=== PATIENT | female | born 1975 | race Two or more races ===

== ENCOUNTER 2019-06-15 23:21 | Emergency (ER) | payer SELFPAY ==
[~2019-06-15] VITALS: Ht 154.9 cm; Wt 65.3 kg
[2019-06-15 23:30] VITALS: BP 129/82
--- NOTE | 2019-06-15 23:30 | NUR ---
ED Nurse Note: Pt ambulated to ED from home c/o R lower abdominal pain 10/10v and N/V. VSS pt A&OX4
--- NOTE | 2019-06-15 23:38 | Emergency Room Report ---
History of Present Illness General Chief Complaint: Abdominal Pain Source: Patient Present Illness HPI Is a 43-year-old female with no past medical history. She presents with complaint of abdominal pain. Onset for last 3 days now. She said is constant but worse with eating. Radiating to her right inferior scapular area. Pain is localized to the right upper quadrant. Pain is sharp. 9 out of 10. Worse with eating. Worse with palpation. Nothing made it better. No fever or chills. Vomiting is nonbloody nonbilious. No diarrhea. Never had this problem before. No family history that she knows of. Allergies: Coded Allergies: No Known Allergies (Unverified , 06/15/19) Patient History Past Medical History: see triage record, old chart reviewed Past Surgical History: other Pertinent Family History: none Social History: Denies: smoking Last Menstrual Period: apr 2019 Now: No Immunizations: other Reviewed Nursing Documentation: PMH: Agreed; PSxH: Agreed Nursing Documentation-PMH Past Medical History: No Stated History Review of Systems Eye: Denies: eye pain, blurred vision ENT: Denies: ear pain, nose congestion, throat swelling Respiratory: Denies: cough, shortness of breath Cardiovascular: Denies: chest pain, palpitations Gastrointestinal: Reports: abdominal pain, nausea, vomiting; Denies: diarrhea Musculoskeletal: Denies: back pain, joint pain Skin: Denies: rash Neurological: Denies: headache, numbness Endocrine: Denies: increased thirst, increased urine Hematologic/Lymphatic: Denies: easy bruising All Other Systems: negative except mentioned in HPI Physical Exam Vital Signs Date Time Temp Pulse Resp B/P (MAP) Pulse Ox O2 Delivery O2 Flow Rate FiO2 06/15/19 23:24 98.4 67 20 129/82 (98) 97 Room Air Vitals normal Sp02 EP Interpretation: reviewed, normal General Appearance: well appearing, no apparent distress, alert, obese Head: normocephalic, atraumatic Eyes: bilateral eye PERRL, bilateral eye EOMI ENT: hearing grossly normal, normal pharynx Neck: full range of motion, supple, no meningismus Respiratory: chest non-tender, lungs clear, normal breath sounds Cardiovascular #1: regular rate, rhythm, no murmur Gastrointestinal: normal bowel sounds, no mass, no organomegaly, no bruit, non- distended, tenderness - Right upper quadrant Musculoskeletal: back normal, normal range of motion, gait/station normal Psychiatric: mood/affect normal Medical Decision Making Diagnostic Impression: Primary Impression: Cholelithiasis Qualified Codes: K80.20 - Calculus of gallbladder without cholecystitis without obstruction Additional Impression: Biliary colic symptom ER Course Patient presents with right upper quadrant pain. She has gallstones. No evidence of obstruction or cholecystitis. Pain well controlled now. No evidence of pancreatitis. Will discharge home. CT/MRI/US Diagnostic Results CT/MRI/US Diagnostic Results : Imaging Test Ordered: CT abdomen pelvis Impression Read by radiologist. Diffuse fatty liver. Suggestion of gallstones. Normal appendix. Last Vital Signs Date Time Temp Pulse Resp B/P (MAP) Pulse Ox O2 Delivery O2 Flow Rate FiO2 06/15/19 23:24 98.4 67 20 129/82 (98) 97 Room Air Status: improved Disposition: HOME, SELF-CARE Condition: Stable Scripts Ibuprofen* (MOTRIN*) 600 Mg Tablet 600 MG ORAL THREE TIMES A DAY, #30 TAB 0 Refills Prov: Deric Webb MD 06/16/19 Hydrocodone/Acetaminophen 5-325* (HYDROCODONE/ACETAMINOPHEN 5-325*) 1 Each Tablet 1 TAB ORAL Q6H PRN for For Pain, #20 TAB 0 Refills Prov: Deric Webb MD 06/16/19 Additional Instructions: Follow-up with your doctor in a week. You may need a referral to see a surgeon. Return if worse. Deric Webb MD Jun 15, 2019 23:38
[2019-06-15] MEDS ORDERED: Ketorolac 30mg Inj IV ONE (23:45)
[2019-06-15] MEDS ORDERED: Morphine Sulfate 4mg/ml Inj (IV USE ONLY) IVP ONE (23:45)
[2019-06-15 23:55] LABS: APPEARANCE,URINE CLEAR; BILIRUBIN, URINE NEGATIVE (NEGATIVE); COLOR,URINE PALE YELLOW; GLUCOSE, URINE (UA) NEGATIVE (NEGATIVE); KETONES,URINE NEGATIVE (NEGATIVE); LEUKOCYTE ESTERASE ,URINE NEGATIVE (NEGATIVE); NITRITE,URINE NEGATIVE (NEGATIVE); PH,URINE 6.5 (4.5-8.0); PROTEIN,URINE NEGATIVE (NEGATIVE); UROBILINOGEN,URINE NORMAL MG/DL (0.0-1.0)
[2019-06-16 00:05] LABS: ANION GAP 8 mmol/L (5-15); BLOOD UREA NITROGEN 14 mg/dL (7-18); CALCIUM 8.6 MG/DL (8.5-10.1); CARBON DIOXIDE 24 MMOL/L (21-32); CHLORIDE 102 MMOL/L (98-107); CREATININE 0.7 MG/DL (0.55-1.30); POTASSIUM 3.7 MMOL/L (3.5-5.1); SODIUM 134 MMOL/L (136-145)
[2019-06-16 00:07] LABS: BASOPHILS % (AUTO) 0.8 % (0.0-2.0); EOSINOPHILS % (AUTO) 0.8 % (0.0-3.0); HEMATOCRIT 38.7 % (37.0-47.0); HEMOGLOBIN 14.3 G/DL (12.0-16.0); LYMPHOCYTES % (AUTO) 17.8 % (20.0-45.0); MEAN CORPUSCULAR VOLUME 89 FL (80-99); MONOCYTES % (AUTO) 4.2 % (1.0-10.0); NEUTROPHILS % (AUTO) 76.5 % (45.0-75.0); PLATELET COUNT 297 K/UL (150-450); RED BLOOD COUNT 4.35 M/UL (4.20-5.40); RED CELL DISTRIBUTION WIDTH 9.9 % (11.6-14.8); WHITE BLOOD COUNT 12.7 K/UL (4.8-10.8)
[2019-06-16 00:09] LABS: ALANINE AMINOTRANSFERASE 43 U/L (12-78); ALBUMIN 3.6 G/DL (3.4-5.0); ALBUMIN/GLOBULIN RATIO 0.8 (1.0-2.7); ALKALINE PHOSPHATASE 95 U/L (46-116); ASPARTATE AMINO TRANSFERASE 24 U/L (15-37); BILIRUBIN,TOTAL 0.3 MG/DL (0.2-1.0)
[2019-06-16] MEDS ORDERED: Morphine Sulfate 4mg/ml Inj (IV USE ONLY) IVP ONE (00:15)
--- NOTE | 2019-06-16 00:47 | Diagnostic Imaging Report ---
INDICATION: Abdominal pain TECHNIQUE: Continuous helical transaxial imaging of the abdomen and pelvis was obtained from the lung bases to the pubic symphysis. No intravenous contrast was administered. Coronal 2-D reformats were also obtained. Automatic Exposure Control was utilized. Total Dose length Product (DLP): 1227.[address] Dose Index Volume (CTDIvol): 20.7 mGy Comparison: none FINDINGS: Lungs: The visualized lung bases are clear. Liver: Unremarkable Gallbladder/biliary system: Gallstones are suspected. The gallbladder is mildly distended.. There is no biliary ductal dilatation appreciated. Spleen: Unremarkable Pancreas: Unremarkable Kidneys: No definite stone or hydronephrosis are identified.. Adrenal glands: Unremarkable Bowel: Few diverticula are noted in the descending and sigmoid colon without evidence of acute diverticulitis. There is no evidence of bowel obstruction. There is a small umbilical hernia containing fat. The appendix is normal. Bladder: Unremarkable Aorta/IVC: Unremarkable Peritoneum: There is trace free fluid within the pelvis. Retroverted uterus noted.. Bones: Vertebral endplate osteophytes noted within the lower thoracic spine. IMPRESSION: Cholelithiasis. Diverticulosis of the colon. No evidence of acute diverticulitis. Retroverted uterus. Degenerative changes of the spine Note: Evaluation of solid organs is limited on non contrast imaging. The CT scanner at [facility] is accredited by the [employer] and the scans are performed using dose optimization techniques as appropriate to a performed exam including Automatic Exposure control.
[2019-06-16] MEDS ORDERED: HYDROCODON-ACE1 EA15 ORAL (01:22)
[2019-06-16] MEDS ORDERED: IBUPROFEN600 MG ORAL (01:22)
[2019-06-16 01:30] VITALS: BP 129/82
--- NOTE | 2019-06-16 01:30 | NUR ---
ER DISCHARGE NOTE: Patient is cleared to be discharged per ERMD, pt is aox4, on room air, with stable vital signs. pt was given dc and prescription instructions, pt was able to verbalize understanding, pt id band and iv site removed without complications. pt is able to ambulate with steady gait. pt took all belongings.
== END 2019-06-16 01:30 | disposition home or self-care (01) ==
LOC: EMR 23:37
DX: K80.20 Calculus of gallbladder without cholecystitis without obstruction (principal); K80.50 Calculus of bile duct without cholangitis or cholecystitis without obstruction
CPT/HCPCS: 36415; 74176; 80053; 81003; 81025; 83690; 85025; 96361; 96374; 96375; 96376; 99284; J1885; J2270; J2405; J7030

== ENCOUNTER 2020-06-13 21:24 | Emergency (ER) | payer MEDICAID ==
[~2020-06-13] VITALS: Ht 152.4 cm; Wt 68.0 kg
[~2020-06-13 21:24] MED LIST: HYDROCODON-ACE1 EA15 ORAL; IBUPROFEN600 MG ORAL
--- NOTE | 2020-06-13 21:30 | NUR ---
ED Nurse Note: patient ambulated to ed c/o left thumb laceration x 2 hours. patient accidentally cut self with knife. last tetanus shot 11/2019. patient right handed. patient ao4 with no acute distress. vitals stable. all safety measures met.
--- NOTE | 2020-06-13 21:40 | Emergency Room Report ---
History of Present Illness General Chief Complaint: Laceration Source: Patient Present Illness HPI 2 hours ago the patient sliced off the tip of her L thumb while preparing food for pozole. Pain /10, sharp and stabbing. Not radiating. Bleeding controlled with direct pressure. Last tetanus 11/2019. R handed. Denies exposure to covid + contacts. LNMP 04/30/20. States menses irregular. 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 Reviewed Nursing Documentation: PMH: Agreed; PSxH: Agreed Nursing Documentation-PMH Past Medical History: No Stated History Review of Systems Constitutional: Denies: fever Genitourinary: Reports: see HPI Musculoskeletal: Reports: see HPI Skin: Reports: see HPI Neurological: Denies: numbness Hematologic/Lymphatic: Reports: see HPI Physical Exam Vital Signs Date Time Temp Pulse Resp B/P (MAP) Pulse Ox O2 Delivery O2 Flow Rate FiO2 06/13/20 21:27 98.2 81 16 141/88 (105) 95 Room Air Sp02 EP Interpretation: reviewed, normal General Appearance: well appearing, no apparent distress, GCS 15 Head: normocephalic Eyes: bilateral eye normal inspection, bilateral eye PERRL ENT: moist mucus membranes Neck: normal inspection Respiratory: normal inspection Cardiovascular #1: regular rate, rhythm Cardiovascular #2: 2+ radial (L) - good capillary mahnaz Gastrointestinal: normal inspection Musculoskeletal: gait/station normal, normal range of motion Neurologic: alert, grossly normal Psychiatric: mood/affect normal Skin: normal color, warm/dry, other - avulsion L tip of thumb Procedures Laceration/Wound Repair Laceration/Wound Repair : Consent: Verbal Wound Location: upper extremity - L thumb Wound's Depth, Shape: superficial Wound Length (cm): 1 Wound Explored: clean Irrigated w/ Saline (ccs): 30 Betadine Prep?: Yes Anesthesia: other - LET Wound Debrided: None Wound Repaired With: Dermabond Patient Tolerated: Well Complications: None Progress Cleansed and prepped. Dermabond applied. (2 applications due to bleeding). Tolerated well. Medical Decision Making Diagnostic Impression: Primary Impression: Avulsion of skin of left thumb Qualified Codes: S61.002A - Unspecified open wound of left thumb without damage to nail, initial encounter ER Course Patient with avulsion of tip of L thumb. Hemostasis, pain control and Dermabond indicated. See procedure note. Tolerated procedure well. Stable for outpatient observation and treatment. Last Vital Signs Date Time Temp Pulse Resp B/P (MAP) Pulse Ox O2 Delivery O2 Flow Rate FiO2 06/13/20 22:25 98.2 89 16 141/88 95 Room Air Status: improved Disposition: HOME, SELF-CARE Condition: Improved Harjeet Ga MD Jun 13, 2020 21:40
[2020-06-13] MEDS ORDERED: LET 3ml Soln TOPIC ONE (21:45)
[2020-06-13 21:55] VITALS: BP 141/88
[2020-06-13 22:25] VITALS: BP 141/88
--- NOTE | 2020-06-13 22:25 | NUR ---
ER DISCHARGE NOTE: Patient is cleared to be discharged per ERMD, pt is aox4, on room air, with stable vital signs. pt was given dc instructions, pt was able to verbalize understanding, pt id band removed. pt is able to ambulate with steady gait. pt took all belongings.
== END 2020-06-13 22:25 | disposition home or self-care (01) ==
LOC: EMR 21:51
DX: S61.002A Unspecified open wound of left thumb without damage to nail, initial encounter (principal); W26.0XXA Contact with knife, initial encounter; Y93.89 Activity, other specified; Y92.9 Unspecified place or not applicable
CPT/HCPCS: 12001; Z7502; 99282